=== PATIENT | female | born 1970 | race Caucasian/White ===

== ENCOUNTER 2016-10-12 19:20 | Emergency (ER) | payer SELFPAY ==
[~2016-10-12] VITALS: Ht 167.6 cm; Wt 104.5 kg
[~2016-10-12 19:20] MED LIST: NORCO 325 MG-51 TAB PO; NORCO 325 MG-7.1 TAB PO; OMNICEF 300MG300 MG PO; PERCOCET 325 MG1 TA2 PO; ZOFRAN 4MG T4 MG/TAB PO; ZOFRAN ODT4 MG PO; ZOFRAN8 MG PO
[2016-10-12 19:21] VITALS: TEMP 98.4
[2016-10-12 19:47] LABS: PH 5 (5-8); URINE APPEARANCE Hazy; URINE BACTERIA Moderate /hpf; URINE BILIRUBIN Negative (NEGATIVE); URINE BLOOD 2+ (NEGATIVE); URINE COLOR Yellow; URINE GLUCOSE Negative (NEGATIVE); URINE KETONE Negative (NEGATIVE); URINE UROBILINOGEN Negative (NEGATIVE)
[2016-10-12 19:54] LABS: BASO # 0.1 (0.0-0.2); BASO % 0.6 % (0.0-2.0); EOS # 0.1 (0.0-0.7); EOS % 1.7 % (0-4.0); GRAN # 4.2 (1.4-6.5); GRAN % 52.2 % (42.2-75.2); HEMATOCRIT 35.2 % (37.0-47.0); HEMOGLOBIN 11.8 g/dl (12.5-16.0); LYMPH % 36.7 % (20.0-51.0); MEAN CELL VOLUME 88 fl (80.0-100.0); MEAN CORPUSCULAR HEMOGLOBIN 29 pg (27.0-31.0); MEAN CORPUSCULAR HGB CONC 34 g/dl (33.0-37.0); MEAN PLATELET VOLUME 9.4 fl (7.4-10.4); MONO # 0.7 (0.1-0.6); MONO % 8.6 % (1.7-9.3); PLATELET COUNT 263 K/mm3 (130-400); RED BLOOD COUNT 4.02 M/mm3 (4.10-5.30); REDCELL DISTRIBUTION WIDTH-CV 11.8 % (11.5-14.5)
[2016-10-12 20:01] LABS: ADJUSTED CALCIUM 9.1 mg/dL (8.4-10.2); ALBUMIN 4.4 gm/dL (3.5-5.0); BILIRUBIN,TOTAL 1.1 mg/dL (0.0-1.0); CALCIUM 9.4 mg/dL (8.4-10.2); CREATININE, serum 0.82 mg/dL (0.52-1.25); POTASSIUM 3.5 mmol/L (3.4-5.0); TOTAL PROTEIN 7.8 gm/dL (6.4-8.2)
[2016-10-12] MEDS ORDERED: PERCOCET 325 MG1 TA2 PO (20:23)
[2016-10-12] MEDS ORDERED: ZOFRAN8 MG PO (20:23)
[2016-10-12 20:26] VITALS: BP 137/84; PULSE 85
[2016-10-14] MEDS ORDERED: CIPRO 500MG TA500 MG PO (14:31)
== END 2016-10-12 20:39 | disposition home or self-care (01) ==
LOC: COL.ER 19:20
PROVIDERS: Emergency Medicine
DX: R10.11 Right upper quadrant pain (principal)
CPT/HCPCS: J1170; J1885; J2405; J7030

== ENCOUNTER 2016-11-11 16:26 | Emergency (ER) | payer SELFPAY ==
[~2016-11-11] VITALS: Ht 167.6 cm; Wt 104.5 kg
[~2016-11-11 16:26] MED LIST changes: +CIPRO 500MG TA500 MG PO
[2016-11-11 16:28] VITALS: TEMP 98.7
[2016-11-11 18:23] VITALS: BP 135/98; PULSE 96
== END 2016-11-11 18:23 | disposition home or self-care (01) ==
LOC: COL.ER 16:26
DX: R10.31 Right lower quadrant pain (principal); G89.29 Other chronic pain

== ENCOUNTER 2017-06-09 22:58 | Emergency (ER) | payer SELFPAY ==
[~2017-06-09] VITALS: Ht 167.6 cm; Wt 104.5 kg
[2017-06-09 23:34] LABS: PH 5 (5-8); URINE APPEARANCE Hazy; URINE BACTERIA Rare /hpf; URINE BILIRUBIN Negative (NEGATIVE); URINE BLOOD 2+ (NEGATIVE); URINE COLOR Yellow; URINE GLUCOSE Negative (NEGATIVE); URINE KETONE Negative (NEGATIVE); URINE RBC 20-50 /hpf; URINE UROBILINOGEN Negative (NEGATIVE); URINE WBC 0-2 /hpf
[2017-06-09 23:49] LABS: BASO % 0.5 % (0.0-2.0); EOS # 0.1 (0.0-0.7); EOS % 0.9 % (0-4.0); GRAN # 4.8 (1.4-6.5); GRAN % 55.9 % (42.2-75.2); HEMOGLOBIN 12.2 g/dl (12.5-16.0); LYMPH % 34.8 % (20.0-51.0); MEAN CELL VOLUME 87 fl (80.0-100.0); MEAN CORPUSCULAR HEMOGLOBIN 29 pg (27.0-31.0); MEAN CORPUSCULAR HGB CONC 34 g/dl (33.0-37.0); MEAN PLATELET VOLUME 9.4 fl (7.4-10.4); MONO # 0.7 (0.1-0.6); MONO % 7.6 % (1.7-9.3); PLATELET COUNT 259 K/mm3 (130-400); RED BLOOD COUNT 4.18 M/mm3 (4.10-5.30); REDCELL DISTRIBUTION WIDTH-CV 12.1 % (11.5-14.5); WHITE BLOOD COUNT 8.7 K/mm3 (4.8-10.8)
[2017-06-09 23:50] LABS: HEMATOCRIT 36.2 % (37.0-47.0)
[2017-06-09 23:57] VITALS: TEMP 98.2
[2017-06-09 23:59] LABS: ALBUMIN 4.4 gm/dL (3.5-5.0); CALCIUM 9.3 mg/dL (8.4-10.2); CREATININE, serum 0.78 mg/dL (0.52-1.25); POTASSIUM 3.7 mmol/L (3.4-5.0); TOTAL PROTEIN 7.6 gm/dL (6.4-8.2)
[2017-06-10] MEDS ORDERED: ZOFRAN 4MG T4 MG/TAB PO (00:57)
[2017-06-10 01:04] VITALS: BP 175/77; PULSE 76
== END 2017-06-10 01:06 | disposition home or self-care (01) ==
LOC: COL.ER 22:58
PROVIDERS: Nurse Practitioner
DX: R31.9 Hematuria, unspecified (principal); R10.9 Unspecified abdominal pain; Z87.442 Personal history of urinary calculi; Z90.49 Acquired absence of other specified parts of digestive tract; Z90.710 Acquired absence of both cervix and uterus
CPT/HCPCS: J1170; J1885; J2405; J7030

== ENCOUNTER 2018-10-10 01:00 | Emergency (ER) | payer SELFPAY ==
[~2018-10-10] VITALS: Ht 167.6 cm; Wt 109.1 kg
[2018-10-10 01:03] VITALS: BP 166/102; TEMP 97.5
[2018-10-10] MEDS ORDERED: AMOXICILLIN 8751 TAB PO (01:48)
[2018-10-10] MEDS ORDERED: NORCO 325 MG-51 TAB PO (01:48)
[2018-10-10 02:10] VITALS: PULSE 87
== END 2018-10-10 02:10 | disposition home or self-care (01) ==
LOC: COL.ER 01:00
DX: K02.9 Dental caries, unspecified (principal)